=== PATIENT | male | born 1950 | race African-American/Black ===

== ENCOUNTER 2023-10-27 11:21 | Emergency (ER) | payer BC, MEDICAID, MEDICARE ==
[~2023-10-27] VITALS: Ht 152.4 cm; Wt 62.2 kg
[~2023-10-27 11:21] MED LIST: BIMA2.5D4 OP; CARB200T PO; CLOT10SO7 TP; CLOT30CR TP; DOCU-138 PO; METO10TA3 PO; QUET200T PO; VIC PO
[2023-10-27 11:33] VITALS: O2SAT 96
[2023-10-27 13:06] LABS: HEMOGLOBIN. 11.1 g/dL (14.0-18.0); MEAN CORPUSCULAR HEMOGLOBIN 31.4 pg (28.0-32.0); MEAN CORPUSCULAR HGB CONC 32.7 g/dL (31.0-37.0); MEAN CORPUSCULAR VOLUME 95.9 fL (80.0-94.0); MEAN PLATELET VOLUME 7.2 fl (7.4-10.4); PLATELET 239 x1000/uL (130-400); RED BLOOD CELL COUNT 3.55 mill/uL (4.7-6.1); RED CELL DISTRIBUTION WIDTH 13.2 % (11.6-14.6); WHITE BLOOD COUNT 10.8 x1000/uL (4.5-11.0)
[2023-10-27 13:11] LABS: DIFFERENTIAL COMMENT 1
[2023-10-27 13:14] LABS: CALCIUM 9.7 mg/dL (8.7-10.4); CHLORIDE 102 mEq/L (98-107); POTASSIUM 4.2 mEq/L (3.5-5.1); SODIUM 135 mEq/L (136-145)
[2023-10-27 13:15] LABS: CARBON DIOXIDE 29 mEq/L (21-32)
[2023-10-27 13:19] LABS: TROPONIN I HIGH SENSITIVITY 8 ng/L (3.0-53)
[2023-10-27 13:20] LABS: CREATININE 0.7 mg/dL (0.6-1.3); GLUCOSE 100 mg/dL (70-105); UREA NITROGEN BLOOD 5 mg/dL (9-23)
[2023-10-27 14:38] VITALS: BP 138/91; PULSE 92; RESP 18; TEMP 37.16964; O2SAT 97
[2023-10-27 15:48] LABS: PLATELET ESTIMATE NORMAL
== END 2023-10-27 14:41 | disposition home or self-care (01) ==
LOC: ER 11:21
DX: R05.9 Cough, unspecified (principal); Z79.899 Other long term (current) drug therapy; Z98.890 Other specified postprocedural states
CPT/HCPCS: 36415; 71046; 80048; 84484; 85025; 99284